=== PATIENT | female | born 1955 | race Caucasian/White ===

== ENCOUNTER 2022-08-18 13:02 | Emergency (ER) | payer MEDICARE, OTHER ==
[~2022-08-18] VITALS: Ht 152.4 cm; Wt 56.7 kg
[2022-08-18 13:09] VITALS: BP 144/80
[2022-08-18] MEDS ORDERED: CITALOPRAM HBR20 M9 PO (15:31)
[2022-08-18] MEDS ORDERED: COMBIVENT RESPIM4 G1 (15:31)
[2022-08-18] MEDS ORDERED: HYDR1TAB94 PO (16:03)
== END 2022-08-18 16:19 | disposition home or self-care (01) ==
LOC: ER 13:02
DX: M54.50 Low back pain, unspecified (principal); M25.552 Pain in left hip; M54.2 Cervicalgia; W18.30XA Fall on same level, unspecified, initial encounter; J44.9 Chronic obstructive pulmonary disease, unspecified; Z87.891 Personal history of nicotine dependence
CPT/HCPCS: 71046; 72220; 73502; 99283-25; A9270